=== PATIENT | female | born 1995 | race Caucasian/White ===

== ENCOUNTER 2016-09-25 18:08 | Emergency (ER) | payer BC, OTHER ==
[2016-09-25 18:28] VITALS: BP 138/77
--- NOTE | 2016-09-25 19:15 | UC ---
Skin Complaint HPI - HPI Summary HPI Summary: The patient comes in today for: 1. Rash Onset: 6 days ago. Palliative/provocative: Nothing makes the rash better or worse. Quality: Itching "a little." Region: Face, stomach, back, arms, legs. Severity: 5/10 itching. Time: Comes and goes. Associated symptoms: Previous disease: None Lives with parents; None have a rash. REcent medications: Amoxicillin since the last 4 days ago. She had a sore throat and strept test was positive. She was started on the Amoxil for this. * - History of Current Complaint Chief Complaint: UCRash Time Seen by Provider: 09/25/16 19:09 Stated Complaint: RASH Hx Obtained From: Patient Hx Last Menstrual Period: 08-28-16 ?: No - Allergy/Home Medications Allergies/Adverse Reactions: Allergies Allergy/AdvReac Type Severity Reaction Status Date / Time No Known Allergies Allergy Verified 06/10/16 21:36 Home Medications: Home Medications Amoxicillin CAP* 500 mg PO BID 09/25/16 [History Confirmed 09/25/16] Review of Systems Constitutional: Negative Skin: Rash Eyes: Negative ENT: Negative Respiratory: Negative Cardiovascular: Negative Gastrointestinal: Negative Genitourinary: Negative All Other Systems Reviewed And Are Negative: Yes PMH/Surg Hx/FS Hx/Imm Hx Previously Healthy: No - Family planning/BCP Endocrine History Of: Denies: Diabetes, Thyroid Disease, Hyperthyroidism, Hypothyroidism, Dyslipidemia Cardiovascular History Of: Denies: Cardiac Disorders, Hypertension, Pacemaker/ICD, Myocardial Infarction , Congestive Heart Failure, Atrial Fibrillation, Deep Vein Thrombosis, Bleeding Disorders Respiratory History Of: Denies: COPD, Asthma, Bronchitis, Pneumonia, Pulmonary Embolism GI/ History Of: Denies: Gastroesophageal Reflux, Ulcer, Gastrointestinal Bleed, Gall Bladder Disease, Kidney Stones, Diverticulitis, Renal Disease, Urosepsis Neurological History Of: Denies: TIA, CVA, Dementia, Seizures, Migraine Psychological History Of: Denies: Anxiety, Depression, Bipolar Disorder, Schizophrenia, Post Traumatic Stress Disorder Cancer History Of: Denies: Lung Cancer, Colorectal Cancer, Breast Cancer, Prostate Cancer, Cervical Cancer Other History Of: Negative For: HIV, Hepatitis B, Hepatitis C, Anticoagulant Therapy - Surgical History Surgical History: None - Family History Known Family History: Positive: Hypertension - Father Negative: Cardiac Disease, Diabetes Family History: Grandmother: Cardiac stent - Social History Occupation: Employed Full-time Alcohol Use: None Substance Use Type: None Smoking Status (MU): Never Smoked Tobacco Have You Smoked in the Last Year: No - Immunization History Most Recent Influenza Vaccination: 2014 Most Recent Tetanus Shot: UTD Vaccination Up to Date: Yes Physical Exam Triage Information Reviewed: Yes Appearance: Well-Appearing, No Pain Distress, Well-Nourished Vital Signs: Initial Vital Signs Temp 97.8 F 09/25/16 18:22 Pulse 88 09/25/16 18:22 Resp 16 09/25/16 18:22 BP 138/77 09/25/16 18:22 Pulse Ox 100 09/25/16 18:22 Vital Signs Reviewed: Yes Eyes: Positive: Conjunctiva Clear. Negative: Discharge ENT: Positive: Hearing grossly normal, Pharynx normal. Negative: Pharyngeal erythema, Nasal congestion, Nasal drainage, TM bulging, TM dull, TM red, Tonsillar swelling, Tonsillar exudate Dental: Negative: Gross Decay/Caries @, Dental Fracture @ Neck: Positive: Supple, Nontender, No Lymphadenopathy. Negative: Nuchal Rigidity Respiratory: Positive: Chest non-tender, Lungs clear, No respiratory distress, No accessory muscle use, Crackles, Wheezing Cardiovascular: Positive: RRR, No Murmur Abdomen Description: Positive: Nontender, No Organomegaly, Soft. Negative: Distended, Guarding Musculoskeletal: Positive: Strength Intact, ROM Intact Neurological: Positive: Alert, Muscle Tone Normal Psychological: Positive: Age Appropriate Behavior, Consolable Skin: Positive: rashes - She has small, multiple lesions, slightly raised with silvery scale.. 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 Discharge - Discharge Plan Condition: Stable Disposition: HOME Patient Education Materials: Dermatitis (ED) Referrals: Eliza Jack MD [Primary Care Provider] - 1 Week (Please see your primary care provider in a week to see how well you are doing. If you get worse, please be seen sooner in the ER or through us.)
[2016-09-25] MEDS ORDERED: hydrOXYzine HCL TAB* 50 MG PO ONE (19:35)
[2016-09-25] MEDS ORDERED: hydrOXYzine HCL TAB* 25 MG PO ONE (19:42)
[2016-09-25] MEDS ORDERED: hydrOXYzine HCL TAB* 25 MG ONE (19:44)
[2016-09-27 10:49] LABS: Syphilis Index < 0.1 Index
== END 2016-09-25 19:55 | disposition home or self-care (01) ==
LOC: UCEAST 18:08
DX: L40.4 Guttate psoriasis (principal)
CPT/HCPCS: 36415; 86592; 99212; A9270-GY; G0463

== ENCOUNTER 2016-10-15 19:28 | Emergency (ER) | payer BC ==
[2016-10-15 21:07] VITALS: BP 126/85
--- NOTE | 2016-10-15 21:16 | UC ---
Throat Pain/Nasal Zechariah HPI - HPI Summary HPI Summary: complaint of nasal congestion and cough nonproductive cough coughing so hard that she started vomiting yesterday 3x enitire body feels wek since yesterday denies diarrhea- denies nauseated denies fever but has had chills denies sore thraot has been taking OTC cough medication- robitussin with no relief hx of strep end of september and has had URI symptoms off and on since then - History of Current Complaint Chief Complaint: UCRespiratory Stated Complaint: COUGH,VOMITING Hx Obtained From: Patient Hx Last Menstrual Period: END September - Allergies/Home Medications Allergies/Adverse Reactions: Allergies Allergy/AdvReac Type Severity Reaction Status Date / Time No Known Allergies Allergy Verified 10/15/16 21:07 Home Medications: Home Medications Apremilast [Otezla] 10/15/16 [History] Cholecalciferol TAB* [Vitamin D TAB*] 10/15/16 [History] [place]-3 Fatty Acids [Fish Oil] 10/15/16 [History] guaiFENesin LIQ* [Robitussin*] 10/15/16 [History] PMH/Surg Hx/FS Hx/Imm Hx Previously Healthy: Yes Endocrine History Of: Denies: Diabetes, Thyroid Disease, Hyperthyroidism, Hypothyroidism, Dyslipidemia Cardiovascular History Of: Denies: Cardiac Disorders, Hypertension, Pacemaker/ICD, Myocardial Infarction , Congestive Heart Failure, Atrial Fibrillation, Deep Vein Thrombosis, Bleeding Disorders Respiratory History Of: Denies: COPD, Asthma, Bronchitis, Pneumonia, Pulmonary Embolism GI/ History Of: Denies: Gastroesophageal Reflux, Ulcer, Gastrointestinal Bleed, Gall Bladder Disease, Kidney Stones, Diverticulitis, Renal Disease, Urosepsis Neurological History Of: Denies: TIA, CVA, Dementia, Seizures, Migraine Psychological History Of: Denies: Anxiety, Depression, Bipolar Disorder, Schizophrenia, Post Traumatic Stress Disorder Cancer History Of: Denies: Lung Cancer, Colorectal Cancer, Breast Cancer, Prostate Cancer, Cervical Cancer Other History Of: Negative For: HIV, Hepatitis B, Hepatitis C, Anticoagulant Therapy - Surgical History Surgical History: None - Family History Known Family History: Positive: Hypertension - Father Negative: Cardiac Disease, Diabetes Family History: Grandmother: Cardiac stent - Social History Occupation: Student Lives: With Family Alcohol Use: None Substance Use Type: None Smoking Status (MU): Never Smoked Tobacco Have You Smoked in the Last Year: No - Immunization History Most Recent Influenza Vaccination: 2014 Most Recent Tetanus Shot: UTD Vaccination Up to Date: Yes Review of Systems Constitutional: Chills, Fatigue Skin: Negative Eyes: Negative ENT: Nasal Discharge Respiratory: Cough Cardiovascular: Negative Gastrointestinal: Vomiting Genitourinary: Negative Motor: Negative Neurovascular: Negative Musculoskeletal: Negative Neurological: Negative Psychological: Negative All Other Systems Reviewed And Are Negative: Yes Physical Exam Triage Information Reviewed: Yes Appearance: No Pain Distress, Well-Nourished, Ill-Appearing Vital Signs: Initial Vital Signs Temp 98 F 10/15/16 21:05 Pulse 82 10/15/16 21:05 Resp 16 10/15/16 21:05 BP 126/85 10/15/16 21:05 Pulse Ox 100 10/15/16 21:05 Vital Signs Reviewed: Yes Eyes: Positive: Conjunctiva Clear ENT: Positive: Pharyngeal erythema, Nasal congestion, Nasal drainage, TMs normal. Negative: Tonsillar swelling, Tonsillar exudate Respiratory: Positive: Lungs clear, Normal breath sounds, No respiratory distress Cardiovascular: Positive: RRR, No Murmur, Pulses Normal Abdomen Description: Positive: Nontender, Soft Bowel Sounds: Positive: Present Musculoskeletal: Positive: No Edema Neurological: Positive: Alert Psychological Exam: Normal Skin Exam: Normal Throat Pain/Nasal Course/Dx - Differential Dx/Diagnosis Differential Diagnosis/HQI/PQRI: Influenza, Pharyngitis, URI Provider Diagnoses: viral syndrome -influenza-like Discharge - Discharge Plan Condition: Stable Disposition: HOME Prescriptions: Ondansetron ODT TAB* [Zofran Odt TAB*] 4 mg PO Q6H PRN #8 tab.odt PRN Reason: Nausea Patient Education Materials: Influenza (ED) Forms: *Work Release Referrals: Eliza Jack MD [Primary Care Provider] - Additional Instructions: TREATING THE FLU (Influenza) What is the Flu? Influenza, or "flu," is an infection of the breathing tubes and lungs. Flu happens mostly in late fall, winter, or early spring. It is very easily spread from one person to another by coughing and sneezing. The flu affects people of all ages. Symptoms Might Include: Stuffed up or runny nose Cough which may be worse at night that lasts for one to two weeks Fever especially the first 2 days and which may go up and down Headache and muscle aches Mild sore throat Poor appetite Tiredness Influenza (Flu) Vaccine Much of the illness and caused by influenza can be prevented by annual flu vaccination. It is especially recommended for people who are at high risk. Those at higher risk include all people aged 65 years or older and people of any age with chronic diseases of the heart, lung or kidneys, diabetes, immunosuppression, or severe forms of anemia. Other high-risk groups are, women who will be more than 3 months during the flu season, and children. Treatment Recommendations: Take acetaminophen (Tylenol, etc.) for aches and fever. Do not ever give aspirin to children. Drink lots of fluids. Use a cool-mist humidifier night and day if it helps you. Keep room at a comfortable temperature for you. Do not overheat the room. Do not overdress. Do not smoke. Get as much rest as you can. Call Your Doctor or Return Here IF: You have a fever that lasts for more than three days. You have trouble breathing. You begin to cough up green, yellow, or red mucous. Your cough gets worse or you have chest pain with coughing or deep breathing. You start to have any other symptoms that worry you.
[2016-10-15] MEDS ORDERED: Albuterol HFA INHALER* 8 gm MDI INH ONE (21:48)
[2016-10-15] MEDS ORDERED: Ondansetron ODT TAB* 4 MG PO ONE (21:50)
== END 2016-10-15 22:12 | disposition home or self-care (01) ==
LOC: UCEAST 19:28
DX: B34.9 Viral infection, unspecified (principal); J11.1 Influenza due to unidentified influenza virus with other respiratory manifestations
CPT/HCPCS: 99213; A9270-GY; G0463

== ENCOUNTER 2017-01-24 11:27 | Emergency (ER) | payer BC ==
[2017-01-24 11:49] VITALS: BP 124/62
--- NOTE | 2017-01-24 13:00 | UC ---
Lower Extremity/Ankle HPI - HPI Summary HPI Summary: While batting in recreational slow-pitch softball game yesterday pt felt sudden pulling/tearing pain in L buttock and lower back. Had trouble moving normally this morning, especially bending over and putting on shoes. Denies prior sx or fx in the area. No trauma. 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 No difficulty with bowel or bladder, no radiating pain or numbness. No weakness. - History of Current Complaint Chief Complaint: UCLowerExtremity Stated Complaint: BUTTOCKS/HIP INJURY Time Seen by Provider: 01/24/17 12:42 Hx Obtained From: Patient Hx Last Menstrual Period: 01/24/17 ?: No Onset/Duration: Sudden Onset Severity Initially: Moderate Severity Currently: Moderate Aggravating Factor(s): Ambulation, Other - bending Alleviating Factor(s): Rest Able to Bear Weight: Yes - Allergies/Home Medications Allergies/Adverse Reactions: Allergies Allergy/AdvReac Type Severity Reaction Status Date / Time No Known Allergies Allergy Verified 01/24/17 11:43 Home Medications: Home Medications Acetaminophen [Acetaminophen Extra Stren] 1,000 mg PO ONCE PRN 01/24/17 [ History Confirmed 01/24/17] PMH/Surg Hx/FS Hx/Imm Hx Endocrine History Of: Denies: Diabetes, Thyroid Disease, Hyperthyroidism, Hypothyroidism, Dyslipidemia Cardiovascular History Of: Denies: Cardiac Disorders, Hypertension, Pacemaker/ICD, Myocardial Infarction , Congestive Heart Failure, Atrial Fibrillation, Deep Vein Thrombosis, Bleeding Disorders Respiratory History Of: Denies: COPD, Asthma, Bronchitis, Pneumonia, Pulmonary Embolism GI/ History Of: Denies: Gastroesophageal Reflux, Ulcer, Gastrointestinal Bleed, Gall Bladder Disease, Kidney Stones, Diverticulitis, Renal Disease, Urosepsis Neurological History Of: Denies: TIA, CVA, Dementia, Seizures, Migraine Psychological History Of: Denies: Anxiety, Depression, Bipolar Disorder, Schizophrenia, Post Traumatic Stress Disorder Cancer History Of: Denies: Lung Cancer, Colorectal Cancer, Breast Cancer, Prostate Cancer, Cervical Cancer Other History Of: Negative For: HIV, Hepatitis B, Hepatitis C, Anticoagulant Therapy - Surgical History Surgical History: None - Family History Known Family History: Positive: Hypertension - Father Negative: Cardiac Disease, Diabetes Family History: Grandmother: Cardiac stent - Social History Occupation: Employed Full-time Alcohol Use: None Substance Use Type: None Smoking Status (MU): Never Smoked Tobacco Have You Smoked in the Last Year: No - Immunization History Most Recent Influenza Vaccination: 2014 Most Recent Tetanus Shot: UTD Vaccination Up to Date: Yes Review of Systems Constitutional: Negative Skin: Negative Eyes: Negative ENT: Negative Respiratory: Negative Cardiovascular: Negative Gastrointestinal: Negative Genitourinary: Negative Motor: Negative Neurovascular: Negative Musculoskeletal: Myalgia - L buttock Neurological: Negative Psychological: Negative All Other Systems Reviewed And Are Negative: Yes Physical Exam Triage Information Reviewed: Yes Appearance: Well-Appearing, No Pain Distress, Obese Vital Signs: Initial Vital Signs Temp 98.3 F 01/24/17 11:44 Pulse 89 01/24/17 11:44 Resp 16 01/24/17 11:44 BP 124/62 01/24/17 11:44 Pulse Ox 99 01/24/17 11:44 Vital Signs Reviewed: Yes Eye Exam: Normal Eyes: Positive: Conjunctiva Clear ENT Exam: Normal ENT: Positive: Normal ENT inspection, Hearing grossly normal, Pharynx normal, TMs normal Dental Exam: Normal Neck exam: Normal Neck: Positive: Supple, Nontender, No Lymphadenopathy Respiratory Exam: Normal Respiratory: Positive: Chest non-tender, Lungs clear, Normal breath sounds, No respiratory distress, No accessory muscle use Cardiovascular Exam: Normal Cardiovascular: Positive: RRR, No Murmur Musculoskeletal Exam: Other - pain over upper central L buttock, no focal weakness Musculoskeletal: Positive: Strength Intact, ROM Intact Neurological Exam: Normal Neurological: Positive: Alert Psychological Exam: Normal Skin Exam: Normal Lower Extremity Course/Dx - Differential Dx/Diagnosis Provider Diagnoses: L buttock muscle strain Discharge - Discharge Plan Condition: Stable Disposition: HOME Prescriptions: Naproxen [Naproxen DR 500 MG TAB] 500 mg PO BID #10 tab Patient Education Materials: Muscle Strain (ED) Referrals: Eliza Jack MD [Primary Care Provider] - Additional Instructions: If you have clear and marked improvement over the next week, no physical therapy is needed. Simply avoid activities that cause you sharp pain and gradually increase your activity level as pain permits. if you have prolonged or recurring pain in this area, please arrange to see a physical therapist of your choice and follow up with your primary care provider.
== END 2017-01-24 13:01 | disposition home or self-care (01) ==
LOC: UCEAST 11:27
DX: S76.812A Strain of other specified muscles, fascia and tendons at thigh level, left thigh, initial encounter (principal); X50.0XXA Overexertion from strenuous movement or load, initial encounter; Y93.64 Activity, baseball
CPT/HCPCS: 99212; G0463

== ENCOUNTER 2017-07-07 11:56 | Emergency (ER) | payer BC ==
[2017-07-07 12:09] VITALS: BP 136/67
[2017-07-07] MEDS ORDERED: Ketorolac INJ* 60 MG/2 ML VIAL IM ONE (12:17)
--- NOTE | 2017-07-07 12:30 | UC ---
Headache HPI - HPI Summary HPI Summary: headache x 1 day , pain is sever, frontal , no radiation , no n/v/d/c, c/o chest pain , - History Of Current Complaint Chief Complaint: UCChestPain Stated Complaint: HEADACHE/CHEST PAIN Time Seen by Provider: 07/07/17 11:59 Hx Obtained From: Patient Hx Last Menstrual Period: 06/28/17 Onset/Duration: Gradual Onset, Lasting Days - 1, Still Present Onset Of Symptoms: Gradual, Still Present Initially Headache Was: Initial Pain Scale(0-10)= - 8, Severe Currently Pain Is: Current Pain Scale(0-10)= - 8 Timing: Constant Character: Throbbing Location of Headache: Frontal Allevating Factor(s): Nothing Associated Signs And Symptoms: Positive: Negative. Negative: Seizure, Nausea, Vomiting, Sinus Pressure, Fever, Neck Pain, Neck Stiffness, Decreased LOC, Visual Changes, Other (Noted In Comments) - Allergies/Home Medications Allergies/Adverse Reactions: Allergies Allergy/AdvReac Type Severity Reaction Status Date / Time No Known Allergies Allergy Verified 07/07/17 12:09 PMH/Surg Hx/FS Hx/Imm Hx Previously Healthy: Yes Other History Of: Negative For: HIV, Hepatitis B, Hepatitis C, Anticoagulant Therapy - Surgical History Surgical History: None - Family History Known Family History: Positive: Hypertension - Father Negative: Cardiac Disease, Diabetes Family History: Grandmother: Cardiac stent - Social History Alcohol Use: None Substance Use Type: None Smoking Status (MU): Never Smoked Tobacco Have You Smoked in the Last Year: No - Immunization History Most Recent Influenza Vaccination: 2014 Most Recent Tetanus Shot: UTD Vaccination Up to Date: Yes Review of Systems Constitutional: Negative Skin: Negative Eyes: Negative ENT: Negative Respiratory: Negative Motor: Negative Neurological: Headache Is Patient Immunocompromised?: No All Other Systems Reviewed And Are Negative: Yes Physical Exam Triage Information Reviewed: Yes Appearance: Well-Appearing, No Pain Distress, Well-Nourished Vital Signs: Initial Vital Signs Temp 98.5 F 07/07/17 12:02 Pulse 80 07/07/17 12:02 Resp 16 07/07/17 12:02 BP 136/67 07/07/17 12:02 Pulse Ox 98 07/07/17 12:02 Vital Signs Reviewed: Yes Eye Exam: Normal Eyes: Positive: Conjunctiva Clear ENT: Positive: Normal ENT inspection, Hearing grossly normal, Pharynx normal Neck: Positive: Supple, Nontender, No Lymphadenopathy Respiratory: Positive: Chest non-tender, Lungs clear, Normal breath sounds Neurological: Positive: Alert Psychological Exam: Normal Psychological: Positive: Normal Response To Family Skin Exam: Normal UC Physical Exam Vital Signs On Initial Exam: Initial Vitals Temp Pulse Resp BP Pulse Ox 98.5 F 80 16 136/67 98 07/07/17 12:02 07/07/17 12:02 07/07/17 12:02 07/07/17 12:02 07/07/17 12:02 - Neurological Exam Neurological: Normal, Sensory/Motor Intact, Alert, Oriented to Person Place, Time, CN Intact II-III, Normal Gait, Speech Normal Diagnostics - EKG Cardiac Rate: NL - 69 Cardiac Rhythm: Sinus: Normal Ectopy: None ST Segment: Normal Headache Course/Dx - Differential Dx/Diagnosis Provider Diagnoses: headache. chest pain Discharge - Discharge Plan Condition: Stable Disposition: HOME Prescriptions: SUMAtriptan TAB* [Imitrex TAB*] 100 mg PO SEE INSTRUCTIONS #10 tab Patient Education Materials: Acute Headache (ED) Referrals: Eliza Jack MD [Primary Care Provider] - 5 Days
== END 2017-07-07 13:20 | disposition home or self-care (01) ==
LOC: UCCORT 11:56
DX: R51 Headache (principal); R07.9 Chest pain, unspecified
CPT/HCPCS: 93005; 96372; 99212; G0463; J1885

== ENCOUNTER 2018-02-13 14:13 | Emergency (ER) | payer BC ==
[2018-02-13 14:41] VITALS: BP 126/87
--- NOTE | 2018-02-13 14:59 | ED ---
Back Pain - HPI Summary HPI Summary: 22 yr old female with complaint left lower back pain. She fell yesterday landing on the left upper gluteal area with small bruise. She complains of pain to the left pelvis and radiation of pain down left posterior leg. No other complaints. No focal neurological symptoms. No numbness, no weakness. NO bowel or bladder incontinence. - History of Current Complaint Chief Complaint: UCBackPain Stated Complaint: LOW BACK PAIN Time Seen by Provider: 02/13/18 14:36 Hx Last Menstrual Period: 01/26/18 Pain Intensity: 9 - Allergies/Home Medications Allergies/Adverse Reactions: Allergies Allergy/AdvReac Type Severity Reaction Status Date / Time No Known Allergies Allergy Verified 02/13/18 14:36 Home Medications: Home Medications Ibuprofen TAB* [Advil TAB*] 1,000 mg PO ONCE 02/13/18 [History Confirmed ] Norgestimate-Ethinyl Estradiol [Tri-Linyah] 1 tab PO DAILY 02/13/18 [History Confirmed 02/13/18] PMH/Surg Hx/FS Hx/Imm Hx Endocrine/Hematology History: Denies: Hx Anticoagulant Therapy, Hx Diabetes, Hx Thyroid Disease Cardiovascular History: Denies: Hx Congestive Heart Failure, Hx Deep Vein Thrombosis, Hx Hypertension , Hx Myocardial Infarction, Hx Pacemaker/ICD Respiratory History: Denies: Hx Asthma, Hx Chronic Obstructive Pulmonary Disease (COPD), Hx Lung Cancer, Hx Pneumonia, Hx Pulmonary Embolism GI History: Denies: Hx Gall Bladder Disease, Hx Gastrointestinal Bleed, Hx Ulcer, Hx Urosepsis History: Denies: Hx Kidney Stones, Hx Renal Disease Sensory History: Denies: Hx Hearing Aid Neurological History: Denies: Hx Dementia, Hx Migraine, Hx Seizures, Hx Transient Ischemic Attacks (TIA) Psychiatric History: Denies: Hx Anxiety, Hx Depression, Hx Panic Disorder, Hx Schizophrenia, Hx Bipolar Disorder - Cancer History Cancer Type, Location and Year: no cancer Infectious Disease History: No Infectious Disease History: Denies: Hx Clostridium Difficile, Hx Hepatitis, Hx Human Immunodeficiency Virus (HIV), Hx of Known/Suspected MRSA, Hx Shingles, Hx Tuberculosis, History Other Infectious Disease, Traveled Outside the [place] in Last 30 Days - Family History Known Family History: Positive: Hypertension - Father Negative: Cardiac Disease, Diabetes Family History: Grandmother: Cardiac stent - Social History Alcohol Use: Occasionally Substance Use Type: Reports: None Smoking Status (MU): Never Smoked Tobacco Have You Smoked in the Last Year: No Review of Systems Constitutional: Negative Positive: Other - back pain All Other Systems Reviewed And Are Negative: Yes Physical Exam Triage Information Reviewed: Yes Vital Signs On Initial Exam: Initial Vitals Temp Pulse Resp BP Pulse Ox 98.7 F 72 16 126/87 100 02/13/18 14:34 02/13/18 14:34 02/13/18 14:34 02/13/18 14:34 02/13/18 14:34 Vital Signs Reviewed: Yes Appearance: Positive: Well-Appearing, No Pain Distress Skin: Positive: Warm, Skin Color Reflects Adequate Perfusion Head/Face: Positive: Normal Head/Face Inspection Eyes: Positive: EOMI ENT: Positive: Normal ENT inspection Neck: Positive: Nontender Respiratory/Lung Sounds: Positive: Clear to Auscultation, Breath Sounds Present Cardiovascular: Positive: RRR. Negative: Murmur Abdomen Description: Positive: Nontender Musculoskeletal: Positive: Strength/ROM Intact, Other - small bruise left superior gluteal, and some tenderness on palpation of pelvis. No CTLS tenderness. Neurological: Positive: Sensory/Motor Intact, Alert, Oriented to Person Place, Time, CN Intact II-III Psychiatric: Positive: Normal - Candie Coma Scale Best Eye Response: 4 - Spontaneous Best Motor Response: 6 - Obeys Commands Best Verbal Response: 5 - Oriented Coma Scale Total: 15 Diagnostics - Vital Signs Vital Signs Temp Pulse Resp BP Pulse Ox 02/13/18 14:34 98.7 F 72 16 126/87 100 - Laboratory Lab Statement: Any lab studies that have been ordered have been reviewed, and results considered in the medical decision making process. - Radiology pelvis and lumbar spine Xray Interpretation: No Acute Changes Radiology Interpretation Completed By: Radiologist Back Pain Course/Dx - Course Course Of Treatment: 22 yr old with contusion back. - Diagnoses Provider Diagnoses: Contusion Discharge - Sign-Out/Discharge Documenting (check all that apply): Discharge/Admit/Transfer - Discharge Plan Condition: Good Disposition: HOME Patient Education Materials: Contusion in Adults (ED) Referrals: Rola Walker PA [Primary Care Provider] - - Billing Disposition and Condition Condition: GOOD Disposition: Home
--- NOTE | 2018-02-13 15:29 | RAD ---
HISTORY: pain, low back pain COMPARISONS: None VIEWS: 1, Single frontal view of the pelvis FINDINGS: BONE DENSITY: Normal. BONES: There is no displaced fracture. JOINTS: There is no arthropathy. ALIGNMENT: There is no dislocation. SOFT TISSUES: Unremarkable. OTHER FINDINGS: None. IMPRESSION: NO ACUTE OSSEOUS INJURY. IF SYMPTOMS PERSIST, RECOMMEND REPEAT IMAGING.
--- NOTE | 2018-02-13 15:32 | RAD ---
INDICATION: Back pain COMPARISON: None TECHNIQUE: Routine PA, lateral, and oblique imaging was performed . FINDINGS: Bones: There are no acute bony findings. There are no significant osteoarthritic findings. Alignment: Normal Disc spaces: The disc spaces are well-maintained Soft tissues: There are no soft tissue abnormalities. IMPRESSION: NEGATIVE EXAMINATION.
== END 2018-02-13 15:42 | disposition home or self-care (01) ==
LOC: UCCORT 14:13
DX: S30.0XXA Contusion of lower back and pelvis, initial encounter (principal); W19.XXXA Unspecified fall, initial encounter; Y92.9 Unspecified place or not applicable
CPT/HCPCS: 72110; 72170; 99211; G0463

== ENCOUNTER 2019-02-26 07:22 | Emergency (ER) | payer BC ==
[2019-02-26 07:36] VITALS: BP 118/66
--- NOTE | 2019-02-26 08:04 | UC ---
Throat Pain/Nasal Zechariah HPI - HPI Summary HPI Summary: Patient is a 23-year-old female who presents to the urgent care with a chief complaint of having sore throat, dry cough, chills, nasal congestion for the last couple days. The patient reports that she is 6 months , she is unable to take any medications [id number]. She came into the urgent care to rule out strep pharyngitis. She denies any difficulty swallowing, denies any drooling, denies any headache or any other symptoms. Patient denies any abdominal cramping or vaginal discharge. Patient has no other complaints. - History of Current Complaint Chief Complaint: UCGeneralIllness Stated Complaint: SORE THROAT, EAR ACHE, AND COUGH Time Seen by Provider: 02/26/19 07:25 Hx Obtained From: Patient Hx Last Menstrual Period: 01/26/18 ?: Yes Onset/Duration: Gradual Onset Severity: Severe Pain Intensity: 10 Cough: Nonproductive Associated Signs & Symptoms: Positive: Negative - Epiglottits Risk Factors Epiglottis Risk Factors: Negative - Allergies/Home Medications Allergies/Adverse Reactions: Allergies Allergy/AdvReac Type Severity Reaction Status Date / Time No Known Allergies Allergy Verified 02/26/19 07:37 Home Medications: Home Medications Vit37/Iron/Folic Acid [Prenata Chewable Tablet] 02/26/19 [History] PMH/Surg Hx/FS Hx/Imm Hx Previously Healthy: Yes Other History Of: Negative For: HIV, Hepatitis B, Hepatitis C, Anticoagulant Therapy - Surgical History Surgical History: None - Family History Known Family History: Positive: Hypertension - Father Negative: Cardiac Disease, Diabetes Family History: Grandmother: Cardiac stent - Social History Alcohol Use: None Substance Use Type: None Smoking Status (MU): Never Smoked Tobacco Have You Smoked in the Last Year: No - Immunization History Most Recent Influenza Vaccination: 2014 Most Recent Tetanus Shot: UTD Vaccination Up to Date: Yes Review of Systems All Other Systems Reviewed And Are Negative: Yes Constitutional: Positive: Chills Skin: Positive: Negative Eyes: Positive: Negative ENT: Positive: Sore Throat Respiratory: Positive: Cough Cardiovascular: Positive: Negative Gastrointestinal: Positive: Negative Genitourinary: Positive: Negative Motor: Positive: Negative Neurovascular: Positive: Negative Musculoskeletal: Positive: Negative Neurological: Positive: Negative Psychological: Positive: Negative Is Patient Immunocompromised?: No Physical Exam - Summary Physical Exam Summary: Vital signs: Reviewed Gen.: Patient is a well developed and nourished female in no acute distress. Patient is sitting comfortably on the stretcher. Head: Normacephalic and atraumatic Eyes: PERRLA, EOMI x2. Ears: Right ear canal and TM WNL Left ear canal and TM WNL Nose Nose with dry mucosa and clear discharge. No sinus tenderness and mouth: Positive pharyngeal erythema with no exudate. Neck: Supple, no bilateral submandibular and anterior cervical lymphadenopathy. No JVD Lungs: CTA B/L CVS: S1 & S2 present. No murmurs appreciated. ABDOMEN: Soft NT w/ positive BS. EXT: FROM x 4 NEURO: A+O X 3 Triage Information Reviewed: Yes Appearance: Well-Appearing Vital Signs: Initial Vital Signs Temp 97.6 F 02/26/19 07:33 Pulse 73 02/26/19 07:33 Resp 14 02/26/19 07:33 BP 118/66 02/26/19 07:33 Pulse Ox 98 02/26/19 07:33 Throat Pain/Nasal Course/Dx - Course Course Of Treatment: The patient seems to be without any acute distress in the urgent care. The rapid strep is negative. Therefore, I believe that the symptoms are secondary to viral infection. Therefore, she was recommended to continue taking ibuprofen and follow with the primary care physician. The patient understands and agrees. Patient was recommended to return to the urgent care or go to the emergency department if any other symptoms appear. She understands and agrees. - Differential Dx/Diagnosis Provider Diagnosis: Pharyngitis Discharge - Sign-Out/Discharge Documenting (check all that apply): Patient Departure All imaging exams completed and their final reports reviewed: No Studies - Discharge Plan Condition: Stable Disposition: HOME Patient Education Materials: Pharyngitis (ED) Referrals: Rola Walker PA [Primary Care Provider] - Additional Instructions: Take medications as instructed. Tylenol for pain Increase your fluid intake F/U with PCP in the next 2-3 days Return to the if symptoms worsen - Billing Disposition and Condition Condition: STABLE Disposition: Home
== END 2019-02-26 08:10 | disposition home or self-care (01) ==
LOC: UCEAST 07:22
DX: J02.9 Acute pharyngitis, unspecified (principal)
CPT/HCPCS: 87651; 99211; G0463

== ENCOUNTER 2023-09-10 21:33 | Inpatient (IN) ==
[2023-09-10] MEDS ORDERED: Buffered Lidocaine 1% SYRIN 1 ml INTRADERM ONE (22:13)
[2023-09-10 23:14] LABS: ABS Eosinophils 0.1 10^3/uL (0.0-0.5); ABS Lymphocytes 1.9 10^3/uL (1.0-4.8); ABS Monocytes 0.6 10^3/uL (0.0-0.9); ABS Neutrophils 7.6 10^3/uL (1.5-7.6); ABS Nucleated RBC 0.01 10^3/ul; Eosinophil % 0.8 %; Hematocrit 36.1 % (35-45); Hemoglobin 12.6 g/dL (11.5-14.3); Lymphocyte % 18.6 %; Mean Corpuscular Hemoglobin 30.7 pg (27-33); Mean Corpuscular Hgb Conc 34.7 g/dL (31-36); Mean Corpuscular Volume 88.3 fL (80-97); Mean Platelet Volume 9.3 fL (7.5-11.2); Platelet Count 194 10^3/uL (150-450); Red Blood Count 4.09 10^6/uL (3.63-4.92); Red Cell Distribution Width 13.8 % (12-17); White Blood Count 10.2 10^3/uL (3.8-11.8)
[2023-09-10 23:31] LABS: Urine Creatinine Concentration 26.66 mg/dL (20.00-320.00); Urine TP Creat Ratio 0.18 mg/mg
[2023-09-10 23:45] LABS: Albumin 3.4 g/dL (3.2-5.2); Albumin/Globulin Ratio 1.2 (1-3); Calcium 8.5 mg/dL (8.6-10.3); Creatinine, Serum 0.69 mg/dL (0.51-0.95); Globulin 2.8 g/dL (2-4); Potassium 3.8 mmol/L (3.5-5.0); Total Bilirubin 0.4 mg/dL (0.2-1.0); Total Protein 6.2 g/dL (6.4-8.9); Uric Acid 5.8 mg/dL (2.3-6.6); eGFR CKD-EPI 122.7 (>60)
[2023-09-11] MEDS ORDERED: Lidocaine 1% VIAL 10 MG/ML 30 ML VIAL INJ PRN (07:45)
[2023-09-11] MEDS ORDERED: Buffered Lidocaine 1% SYRIN 1 ml INTRADERM ONE (07:45)
[2023-09-11] MEDS ORDERED: Lactated Ringers 1000 ml BAG 1,000 ML IV ONE (07:45)
[2023-09-11] MEDS ORDERED: ceFOXitin 2 GM IVPREMIX 2 GM/50 ML BAG IVPB ONE (07:49)
[2023-09-11] MEDS: Lactated Ringers 1000 ml BAG 1,000 ML IV SCH ×2 (09:41→19:01)
[2023-09-11] MEDS ORDERED: Sodium Citrate/Citric Acid LIQ 15 ML UDC PO ONE (09:54)
[2023-09-11] MEDS ORDERED: Oxytocin 10 UNITS/ML 1 ML VIAL ONE (10:09)
[2023-09-11] MEDS ORDERED: Ondansetron 4 mg VIAL 2 MG/ML 2 ml VIAL ONE (10:10)
[2023-09-11] MEDS ORDERED: Dexamethasone IV 4 MG/ML VIAL 1 ml VIAL ONE (10:10)
[2023-09-11] MEDS ORDERED: Bupivacaine 0.5% SDV PF 30ML VIAL ONE (10:10)
[2023-09-11] MEDS ORDERED: Morphine PF AMP (0.5MG/ML) 5 MG/10 ML AMP ONE (10:11)
[2023-09-11] MEDS ORDERED: Bupivacaine-MPF SPINAL 7.5 MG/ML - 2ML AMP ONE (10:30)
[2023-09-11] MEDS ORDERED: Phenylephrine 40 mcg/mL 10mL (400mcg) SYRINGE ONE (10:31)
[2023-09-11] MEDS ORDERED: Metoclopramide 5 MG/ML VIAL (10 mg) ONE (10:44)
[2023-09-11] MEDS ORDERED: Acetaminophen IV 1 GM/100ML 1,000 MG/100 ML BAG IV ONE (11:05)
[2023-09-11 11:47] LABS: Urine Benzodiazepine Screen None Detected (None Detect); Urine Cannabinoids Screen None Detected (None Detect); Urine Opiates Screen None Detected (None Detect)
[2023-09-11 11:56] LABS: Urine Appearance Clear; Urine Bilirubin Negative (Negative); Urine Blood Negative (Negative); Urine Color Yellow; Urine Glucose Negative (Negative); Urine Ketones 1+ (Negative); Urine Nitrite Negative (Negative); Urine Protein Negative (Negative); Urine Specific Gravity 1.011 (1.002-1.030); Urine Urobilinogen Negative (Negative)
[2023-09-11] MEDS ORDERED: Witch Hazel PAD JAR TOPICAL PRN (12:12)
[2023-09-11] MEDS ORDERED: Dibucaine 1% OINT 28.35 GM TUBE PR PRN (12:12)
[2023-09-11] MEDS ORDERED: Glycerin ADULT 2.4 gm SUPP PR PRN (12:12)
[2023-09-11] MEDS ORDERED: Oxytocin in LR 20,000 MILLI.UNIT/1,000 ML BAG IV SCH (12:15)
[2023-09-11] MEDS ORDERED: Acetaminophen IV 1 GM/100ML 1,000 MG/100 ML BAG IV PRN (12:16)
[2023-09-11] MEDS ORDERED: Naloxone 4 mg VIAL (10 ml) 2 MG in NS 0.9% 250 ml 250 ML IV PRN (12:16)
[2023-09-11] MEDS ORDERED: Naloxone 0.4 mg VIAL 0.4 mg/ml 1 ml VIAL IV PUSH PRN (12:16)
[2023-09-11] MEDS ORDERED: Naloxone 0.4 mg VIAL 0.4 mg/ml 1 ml VIAL IV PRN (12:16)
[2023-09-11] MEDS ORDERED: Ondansetron 4 mg VIAL 2 MG/ML 2 ml VIAL IV PRN (12:16)
[2023-09-11] MEDS ORDERED: Metoclopramide 5 MG/ML VIAL (10 mg) IV PRN (12:16)
[2023-09-11] MEDS ORDERED: Lactated Ringers 1000 ml BAG 1,000 ML IV SCH (13:00)
[2023-09-11] MEDS ORDERED: Famotidine IV 10 MG/ML 2 ml VIAL (20 mg) IV SLOW PU ONE (15:48)
[2023-09-11] MEDS ORDERED: Scopolamine 1 mg/72hr PATCH TRANSDERM SCH (16:00)
[2023-09-12 07:11] LABS: ABS Basophils 0.1 10^3/uL (0.0-0.1); ABS Eosinophils 0.1 10^3/uL (0.0-0.5); ABS Monocytes 0.7 10^3/uL (0.0-0.9); ABS Neutrophils 9.3 10^3/uL (1.5-7.6); ABS Nucleated RBC 0.01 10^3/ul; Eosinophil % 0.6 %; Hematocrit 32.4 % (35-45); Lymphocyte % 16.3 %; Mean Corpuscular Hemoglobin 30.4 pg (27-33); Mean Corpuscular Volume 89.3 fL (80-97); Mean Platelet Volume 9.1 fL (7.5-11.2); Nucleated Red Blood Cells % 0.1 %/100WBC (0.0-0.8); Platelet Count 188 10^3/uL (150-450); Red Blood Count 3.63 10^6/uL (3.63-4.92); Red Cell Distribution Width 13.9 % (12-17); White Blood Count 12.2 10^3/uL (3.8-11.8)
[2023-09-12] MEDS: Benzocaine/Menthol LOZ PO PRN ×2 (12:28→17:43)
[2023-09-13 07:31] VITALS: BP 127/66
== END 2023-09-13 12:58 | disposition home or self-care (01) | DRG 540 ==
LOC: MCHOBOUT 21:33 → MCHOB 09-11 07:28
PROVIDERS: ADMIT Obstetrics & Gynecology; ATTEND Obstetrics & Gynecology